=== PATIENT | female | born 1945 | race Caucasian/White ===

== ENCOUNTER 2022-12-09 09:25 | Outpatient (CLI) | payer MEDICARE, BC, SELFPAY | END 2022-12-09 09:26 | disposition home or self-care (01) | LOC: NFLDREF 12-10 11:44 | PROVIDERS: PCP Internal Medicine; Referring Provider Internal Medicine; Visit Provider Internal Medicine | DX: M85.80 Other specified disorders of bone density and structure, unspecified site (principal); E78.5 Hyperlipidemia, unspecified | CPT/HCPCS: 80061; 82306 ==

== ENCOUNTER 2023-10-16 10:00 | Outpatient (RCR) | payer MEDICARE, BC, SELFPAY ==
--- NOTE | 2023-09-23 17:11 | PT.OPE ---
PT [facility] [facility] PT [facility] Out[facility] Eval Start: 09/22/23 13:40 Freq: Status: Active Protocol: Document 09/23/23 17:10 AHMET (Rec: 09/23/23 17:11 AHMET [id number]) E-signed By Alexandro Leung PT Physical Therapy Outpatient Evaluation Insurance Information Recert Due Date 12/22/23 Insurance Name Medicare B Medical Diagnosis M67.912 - unspecified disorder of synovium and tendon, L shoulder M75.22 - bicipital tendonitis, L shoulder Treating Diagnosis M25.512 - L shoulder pain Referring Jojo Baig MD Subjective Subjective Pt presents with complaints of L shoulder pain. Pain has been ongoing for about 3-4 weeks now. No known injury. Pts was in the hospital a few months ago and during that time she was trying to complete a lot of housework. This is when she thinks her symptoms originally started. Presented to on with L cervical pain and L shoulder pain. Pts PCP thinks she has an issue with her RTC but ordered EKG to rule out cardiac involvement. Lifting the L arm and reaching behind her back has been most bothersome. Reaching into abduction is worse than flexion and range of motion is very limited compared to her R. Pt notes that her pain is on the top, front, and side of her L shoulder. Pt will be completing the rest of her therapy at [facility]. Pain Comments Date of Last Physician Visit 09/18/23 Current Work Status Retired Preferred Name Kareen Precautions Therapy Limitations/Systems Review Not Limited Objective Other/Pertinent Objective Cervical ROM Extension - 37 Flexion - 46 R/L Side Bend - 28/37 R/L Rotation - 62/67 R Shoulder ROM Flexion/Abduction/IR/ER - 170/ 170/T6/80 L Shoulder ROM Flexion/Abduction/IR/ER - 122/ 90/L2/60 R Shoulder Strength Flexion - 4/5 MMT Abduction - 4/5 MMT IR (neutral) - 5/5 MMT IR (90) - 5/5 MMT ER (neutral) - 4/5 MMT ER (90) - 4+/5 MMT Empty Can - 4/5 MMT L Shoulder Strength Flexion - unable to test due to pain Abduction - unable to test due to pain IR (neutral) - 4+/5 MMT IR (90) - unable to test due to pain ER (neutral) - 3/5 MMT * limited by pain ER (90) - unable to test due to pain Empty Can - unable to test due to pain Palpation: pt reports pain with palpation to L UT, levator, pec minor, pec major, LHBT, biceps mm belly, infraspinatus, teres group Crossover: positive L Karen-Efren: positive B Emmanuel: positive L Assessment Assessment/Impression Adelina is a very pleasant 77 year old female who presents to our clinic for evaluation and treatment of L shoulder pain. Pts pain began shortly after she had an extended bout of cleaning at home. Her pain is of the anterior, superior, and lateral L shoulder. Her pain is made worse with elevation and reaching behind her back, although nearly all motions create sharp pains. Today's examination was limited due to pts high level of pain and strength testing could not be completed. Based on pts subjective report and limited exam findings, pt appears to be dealing with a potential RTC tear although it is difficult to determine level of severity at this time . We were able to find several exercises that she could perform with [id number] pain. I've asked Kareen to complete these exercises daily until she has her next appointment with Amelia in [place] and she gives verbal understanding. The nature of the pts suspected condition was explained and all questions were answered to the pts satisfaction. Skilled PT services are medically necessary to address deficits and return patient to highest level of function. Recommend physical therapy sessions 1-2/ week for 4-6 weeks. Pt agrees with this plan. Printout of HEP was given for I completion and pt gives verbal understanding of each exercise . Primary Functional Limitations Lifting, reaching Plan of Care Rehabilitation Potential Good Physical Therapy Goals STG - To be completed in 2-3 weeks: 1. Pt will demonstrate improved shoulder flexion and abduction by 10+ degrees so that they may reach for cans of soup on top shelf in pantry . 2. Pt will report reduction in shoulder pain by factor of 2 so that they may sleep without waking due to pain while shifting position in the night . LTG - To be completed in 6 weeks: 1. Pt to be I with HEP so that they may I manage progression of symptoms. 2. Pt will report ability to lay on L shoulder in bed without increase in pain so that they may sleep in preferred position to achieve better night's sleep. 3. Pt will demo L shoulder ROM and strength equal to that of R so that they may return to completing gardening activities including lifting and carrying objects with reduction of risk of injury to L shoulder. Treatment Plan/Direct Interventions Electrical Stimulation,Heat, Ice/Cold/Vasopneumatic,Joint Mobilization,Manual Therapy, Self-Care/Home Management, Therapeutic Activities, Therapeutic Exercises, Ultrasound Frequency/Duration 1-2/week for 4-6 weeks Patient Will Be Discharged From Therapy Completion of LTG(s),Skills Plateau,Independent w/HEP, Independently Progressing Evaluation Billing Untimed Code Treatment Minutes 45 PT Eval No Charge No Complexity Low Certification Information Initial Certification Date 09/23/23 Ending Certification Date 12/22/23 Provider Signature Shows Agreement With POC & Medical Necessity Physician Signature & Date Requested Please Sign/Date Here Physician Comment/Change : Physician NPI Number #
== END 2024-02-13 23:59 | disposition home or self-care (01) ==
PROVIDERS: PCP Internal Medicine; Visit Provider Internal Medicine
DX: M67.912 Unspecified disorder of synovium and tendon, left shoulder (principal); M75.22 Bicipital tendinitis, left shoulder; M25.512 Pain in left shoulder; R29.898 Other symptoms and signs involving the musculoskeletal system; Z51.89 Encounter for other specified aftercare
CPT/HCPCS: 97110; 97140; 97161; 97535

== ENCOUNTER 2024-01-21 10:26 | Outpatient (CLI) | payer MEDICARE, BC, SELFPAY ==
--- OUTSIDE RECORDS SUMMARY | 2024-01-21 10:36 | XMS_ITS | Clinical Summary ---
Author Organization [facility] Address [address] [place] [id number] Care Team Providers Care Flatwork Ironer Name Role Phone Elsewhere, Pcp Primary Care Provider Unavailabl e Source Comments Patient records contain information from all sites at [facility]. For routine questions regarding patient records, call [phone] during business hours, M-F 8:00 AM - 5:00 PM Central Time. Record requests for emergency care only can be directed to [phone] at any time.[facility] Allergies No known active allergies Medications Medication Sig Dispensed Refills Start Date End Date Status simvastatin (ZOCOR) 20 mg tablet Take 20 mg by mouth at bedtime. Active multivitamin (MULTIPLE VITAMINS) tablet Take 1 tablet by mouth daily. Active aspirin 81 mg chewable tablet Chew 81 mg daily. Ac tive omeprazole (PriLOSEC) [address] capsule Take by mouth daily. 01/23/2021 Acti ve tretinoin (RETIN-A) 0.05 % cream Apply 1 application topically at bedtime. Apply to face and avoid around eyes. 45 g 3 03/07/2022 Active Additional Information Patient not taking.Reported on 03/10/2023 acetaminophen (TYLENOL) 325 mg tablet Take 325 mg by mouth every 4 (four) hours as needed for pain. Active Active Problems Problem Noted Date Diagnosed Date Malignant Neoplasm Of Lower Limb Basal Cell Carc inoma Right 03/18/2021 Immunizations Name Administration Dates Next Due HepA Adult 03/20/2016 Influenza high dose QV(65 ye ars or older) (PF) 01/15/2020 PCV13 02/23/2015 PPSV23 03/05/2016 RZV (SHINGRIX) 12/16/2018, 9,08/15/2018, 019 TyVi (inj) 03/20/2016 influenza high dose (65 year s or older) (PF) 03/08/2019,02/18/2018,03/05/2016, 015 Family History Medical History Relation Name Comments Transient ischemic attack Mother Tatianna Paris Relation Name Status Comments Mother Tatianna Paris Social History Tobacco Use Types Packs/Day Years Used Date Smoking Tobacco: Never Smokeless Tobacco: Never Alcohol Use Standard Drinks/Week Comments Never 0 (1 standard drink = 0.6 oz pur e alcohol) Overall Financial Resource Strain (CARDIA) Answe r Date Recorded How hard is it for you to pa y for the very basics like food, housing, medical care, and heating? Not hard at all 03/04/2023 PHQ-2 Answer Date Recorded PHQ-2 Score 0 03/16/2021 Exercise Vital Sign Answer Date Recorde d On average, how many days pe r week do you engage in moderate to strenuous exercise (like a brisk walk)? 4 days 03/04/2023 On average, how many minutes do you engage in exercise at this level? 30 min 03/04/2023 Hunger Vital Sign Answer Date Recorded Within the past 12 months, y ou worried that your food would run out before you got the money to buy more. Never true 03/04/20 Within the past 12 months, t he food you bought just didn't last and you didn't have money to get more. Never true 03/04/2023 PRAPARE - Transportation Answer Date Re corded In the past 12 months, has l ack of transportation kept you from medical appointments or from getting medications? No 02/16 In the past 12 months, has l ack of transportation kept you from meetings, work, or from getting things needed for daily living? No 03/04/2023 Nutrition Answer Date Recorded Nutrition: EVOO Fat Source Unknown 03/04 On average, how many serving s of fruits and vegetables do you eat per day (serving size is equal to 1 cup or approximately the size of a tennis ball)? 3-5 03/04/2023 Dental Answer Date Recorded Dental: Regular Dentist Yes 03/04/20 Employment Answer Date Recorded Employment status Retired 03/04/2023 Housing Stability Answer Date Recorded What is your living situation today? I have a [facility] place to live 03/04/2023 Sex and Gender Information Value Date Recorded Sex Assigned at Female 03/04/2023 6:09 PM CDT Gender Identity Female 03/04/2023 6:09 PM CDT Sexual Orientation Straight 03/04/2023 6: 09 PM CDT Last Filed Vital Signs Vital Sign Reading Time Taken Comments Blood Pressure 118/72 03/16/2021 10:02 AM CDT Pulse 71 03/16/2021 10:02 AM CDT Temperature 36.1 ??C (97 ??F) 03/16/2021 10:02 AM CDT Respiratory Rate - - Oxygen Saturation 97% 03/16/2021 10:02 AM CDT Inhaled Oxygen Concentration - - Weight 65.1 kg (143 lb 8.3 oz) 03/16/2021 10:02 AM CDT Height - - Body Mass Index - - Plan of Treatment Health Maintenance Due Date Last Done Comments Hepatitis C Screening 1945 Hepatitis A Vaccines (2 of 2 - Risk 2-dose series) 09/17/2016 03/20/2016 Depression Screening (Annual PHQ-2) 05/19/2023 Fall Risk Screen (Annual) 05/19/2023 COVID-19 Vaccine (2022-2 4 season) 2024 02/21/2023, 02/28/2022, 08/23/2021, Additional history exists Influenza Vaccine (#1) 2024 , 02/07/2022, 01/15/2020, Additional history exists DTaP,Tdap,and Td Vaccines (2 - Td or Tdap) 02/08/2032 02/07/2022 Pneumococcal vaccine (65+ years) Completed 03/05/20 16, 02/23/2015 Zoster Vaccines Completed 12/16/2018, 09/2018, 08/15/2018, Additional history exists Care Teams Flatwork Ironer Relationship Specialty Start Date End Date Elsewhere, Pcp PCP - General Family Medicine 03/16/21
--- OUTSIDE RECORDS SUMMARY | 2024-01-21 10:36 | XMS_ITS ---
Author Organization [facility] Address [address] [place] [address] Care Team Providers Care Red Hat Engineer Name Role Phone Unavailable Unavailable Unavailable Surgery Details Not on file Complications Check Surgery Details section. Procedure Estimated Blood Loss Check Surgery Details section. Procedure Findings Check Surgery Details section. Procedure Specimens Taken Check Surgery Details section.
--- OUTSIDE RECORDS SUMMARY | 2024-01-21 10:36 | XMS_ITS | Referral Summary ---
Author Organization [facility] Address [address] [place] [address] Care Team Providers Care Software Lead Name Role Phone Elsewhere, Pcp Primary Care Provider Unavailabl e Source Comments Patient records contain information from all sites at [facility]. For routine questions regarding patient records, call [phone] during business hours, M-F 8:00 AM - 5:00 PM Central Time. Record requests for emergency care only can be directed to [phone] at any time.[facility] Allergies No known active allergies Medications Medication [...] year s or older) (PF) 03/08/2019,02/18/2018,03/05/2016, 015 Social History Tobacco Use Types Packs/Day Years [...] your living situation today? I have a [facility] place to live 03/04/2023 Sex and Gender [...] Mass Index - - Plan of Treatment Not on file Care Teams Software Lead Relationship Specialty Start Date End Date Elsewhere, Pcp PCP - General Family Medicine 03/16/21
== END 2024-01-21 10:27 | disposition home or self-care (01) ==
PROVIDERS: PCP Internal Medicine; Visit Provider Registered Nurse
DX: R53.81 Other malaise (principal); R53.82 Chronic fatigue, unspecified; Z13.0 Encounter for screening for diseases of the blood and blood-forming organs and certain disorders involving the immune mechanism
CPT/HCPCS: 80053; 82728; 84443; 86140

== ENCOUNTER 2024-02-25 08:32 | Outpatient (CLI) | payer MEDICARE, BC, SELFPAY ==
--- OUTSIDE RECORDS SUMMARY | 2024-02-27 11:06 | XMS_ITS | Encounter Summary ---
Author Organization [facility] Address [address] [place] [address] Care Team Providers Care Truck Driver'S Offsider Name Role Phone Elsewhere, Pcp Primary Care Provider Unavailabl e Reason for Visit * Appointment Request (Routine) - Closed Specialty Diagnoses / Procedures Referred By Francisca grimaldo Referred To Contact Dermatology Diagnoses Screening Examination Skin Cancer Personal History Of Other Malignant Neoplasm Of Skin Referral ID Status Reason Start Date Expiration Date Visits Re quested Visits Authorized [id number] Closed 02/17/2024 02/16/2025 1 1 Encounter Details Date Type Department Care Team (Latest Contact Info) Description 02/20/2024 11:20 AM CDT Office Visit Department of Dermatology in [place], [place] [address] [place] [phone] Svetlana Foster M.D. [address] [place] [phone] Dermatoheliosis (Primary Dx); Nevi Multiple; Keratosis Seborrheic; Keratosis Actinic Discharge Disposition: Home or Self Care Social History Tobacco Use Types Packs/Day Years [...] your living situation today? I have a [facility] place to live 03/04/2023 Sex and Gender Information Value Date Recorded Sex Assigned at Female 03/04/2023 6:09 PM CDT Gender Identity Female 03/04/2023 6:09 PM CDT Sexual Orientation Straight 03/04/2023 6: 09 PM CDT documented as of this encounter Progress Notes * Svetlana Foster M.D. - 02/20/2024 11:20 AM CDT Correspondence to: Svetlana Foster M.D. Referring provider: No ref. provider found This patient was seen and staffed with Dr. Pérez. SUBJECTIVE CHIEF COMPLAINT / REASON FOR VISIT History of NMSC. HISTORY OF PRESENT ILLNESS Ms. Adelina Arevalo is a very pleasant 78 y.o. female who presents today for a skin cancer screening examination. Ms. Adelina Arevalo has a history of nonmelanoma skin cancer. She was last seen by [facility] in February 2023 at which time she had actinic keratoses treated with cryotherapy and had a biopsy on the right preauricular area that showed a nodular and infiltrative basal cell carcinoma that was treated at an outside facility. Today, she notes a spot on her nose bled after the shower recently. Denies any other specific concerns. No Known Allergies MEDICAL HISTORY History nonmelanoma skin cancer SOCIAL HISTORY Grew up in [place]. Went to [facility] and met her there. Her recently had heart surgery and is doing better. OBJECTIVE PHYSICAL EXAMINATION General: Awake, alert, in no acute distress, and with appropriate affect. Eyes: No scleral injection or icterus. No eyelid abnormalities. Skin: I have examined the scalp, face, neck, chest, abdomen, back, bilateral upper extremities, andbilateral lower extremities, and buttocks -Coon skin type 2 -Mild dermatoheliosis in sun exposed areas. -Primarily over the trunk and also on the extremities, there are scattered small brown round macules and papules; many of these are examined dermoscopically and reveal regular symmetric network and appear consistent with banal-appearing nevi. -Scattered waxy stuck brown-patricio papules and plaques consistent with seborrheic keratoses. Larger seborrheic keratoses on the right synagogue. -Over the trunk, there are a few bright red dome shaped papules consistent with lacy angiomas. -involving left nasal sidewall, Gritty pink/red papules with adherent scale consistent with actinickeratosis -Ill-defined light brown macule/patch on sun-exposed areas consistent with solar lentigines -Soft, pedunculated flesh colored papules c/w acrochordons. ASSESSMENT / PLAN #1 Dermatoheliosis #2 History of nonmelanoma skin cancer Past history of skin cancer places this patient at increased risk of future NMSC. Sun protection and sun avoidance were reviewed with the patient. Education was provided regarding skin self-examination, the warning signs and symptoms of skin cancer, and the proper use of sunscreens. Appropriate SPFsunscreen was recommended. I would recommend a full skin cancer screening examination with an appropriately trained clinician every year or sooner if any new concerns. #3 Banal-appearing nevi None of the patient's nevi reach the clinical threshold for biopsy. I recommend continued sun protection, self-skin examinations, and observation. Should any of the patient's nevi change in size, color, texture, or shape or develop symptoms such as itching or bleeding, I recommend a return visit for reassessment. #4 Actinic keratoses times 1, left nasal sidewall Given the precancerous nature of this lesion(s), treatment is medically indicated. After discussionof the risks, benefits and alternatives to treatment with cryotherapy, informed consent was obtained. We treated a total of 1 lesion(s) with two 20-second freeze-thaw cycles of liquid nitrogen cryotherapy. The patient tolerated the procedure well. Aftercare instructions were provided in written andverbal form to the patient. Should any of these lesions recur, the patient should return for biopsyor further evaluation. Discussed the risks, benefits, alternatives, and the necessity of other members of the healthcare team participating in the procedure. All questions answered and consent given. All questions answered. PATIENT EDUCATION Ready to learn. No apparent learning barriers were identified. Learning preferences include listening. Explained diagnosis and treatment plan; patient/guardian of patient expressed understanding of the content. Svetlana Foster M.D. Dermatology Associated attestation - Fred Pérez M.D., M.B.A. - 02/20/2024 1:38 PM CDT I saw and evaluated the patient, participating in the saldana portions of the service. I reviewed the resident/fellow???s note. I agree with the resident/fellow???s findings and plan. documented in this encounter Plan of Treatment Not on file documented as of this encounter Visit Diagnoses Diagnosis Dermatoheliosis- Primary Nevi Multiple Keratosis Seborrheic Keratosis Actinic documented in this encounter Care Teams Truck Driver'S Offsider Relationship Specialty Start Date End Date Elsewhere, Pcp PCP - General Family Medicine 03/16/21 documented as of this encounter
--- OUTSIDE RECORDS SUMMARY | 2024-02-27 11:06 | XMS_ITS | Clinical Summary ---
Author Organization [facility] Address [address] [place] [address] Care Team Providers Care Head Porter Baggage Name Role Phone Elsewhere, Pcp Primary Care Provider Unavailabl e Source Comments Patient records contain information from all sites at [facility]. For routine questions regarding patient records, call [phone] during business hours, M-F 8:00 AM - 5:00 PM Central Time. Record requests for emergency care only can be directed to [phone] at any time.[facility] Allergies No known active allergies Medications Medication [...] Limb Basal Cell Carc inoma Right 03/18/2021 Encounters Date Type Department Care Team Description 02/20/2024 11:20 AM CDT Office Visit Department of Dermatology in [place], [place] [address] [place] [phone] Cristian, Svetlana B, M.D. Dermatoheliosis (Primary Dx); Nevi Multiple; Keratosis Seborrheic; Keratosis Actinic Discharge Disposition: Home or Self Care from Last 3 Months Immunizations Name Administration Dates Next Due HepA Adult 03/20/2016 Influenza high dose QV(65 ye ars or older) (PF) 01/15/2020 PCV13 02/23/2015 PPSV23 03/05/2016 RZV (SHINGRIX) 12/16/2018, 9,08/15/2018, 019 TyVi (inj) 03/20/2016 influenza trivalent high dos e (HD)(PF) 03/08/2019,02/18/2018,03/05/2016, 015 Family History Medical History Relation [...] money to buy more. Never true 03/04/20 23 Within the past 12 months, t he [...] your living situation today? I have a [facility] place to live 03/04/2023 Sex and Gender [...] Last Done Comments Hepatitis C Screening 1945 Depression Screening (Annual PHQ-2) 05/19/2023 Fall Risk Screen (Annual) 05/19/2023 COVID-19 Vaccine (2023-2 5 season) 2024 02/21/2023, 02/28/2022, 08/23/2021, Additional history exists Influenza Vaccine (#1) 2024 , 02/07/2022, 01/15/2020, Additional history exists DTaP,Tdap,and Td Vaccines (2 - Td or Tdap) 02/08/2032 02/07/2022 Pneumococcal vaccine (65+ years) Completed 03/05/20 16, 02/23/2015 Zoster Vaccines Completed 12/16/2018, 09/2018, 08/15/2018, Additional history exists RSV vaccine - (32-3 6 weeks) or 60+ years Completed 01/29/2023 Care Teams Head Porter Baggage Relationship Specialty Start Date End Date Elsewhere, Pcp PCP - General Family Medicine 03/16/21
--- OUTSIDE RECORDS SUMMARY | 2024-02-27 11:06 | XMS_ITS ---
Author Organization [facility] Address [address] [place] [address] Care Team Providers Care Boss Dyer Name Role Phone Unavailable Unavailable Unavailable Surgery Details Not on file Complications Check Surgery Details section. Procedure Estimated Blood Loss Check Surgery Details section. Procedure Findings Check Surgery Details section. Procedure Specimens Taken Check Surgery Details section.
--- OUTSIDE RECORDS SUMMARY | 2024-02-27 11:06 | XMS_ITS | Referral Summary ---
Author Organization [facility] Address [address] [place] [phone] Care Team Providers Care Butcherette Name Role Phone Elsewhere, Pcp Primary Care Provider Unavailabl e Source Comments Patient records contain information from all sites at [facility]. For routine questions regarding patient records, call [phone] during business hours, M-F 8:00 AM - 5:00 PM Central Time. Record requests for emergency care only can be directed to [phone] at any time.[facility] Encounters Date Type Department Care Team Description 02/20/2024 11:20 AM CDT Office Visit Department of Dermatology in [place], [place] [address] [place] [phone] Svetlana Foster M.D. Dermatoheliosis (Primary Dx); Nevi Multiple; Keratosis Seborrheic; Keratosis Actinic Discharge Disposition: Home or Self Care from Last 3 Months Allergies No known active allergies Medications Medication [...] trivalent high dos e (HD)(PF) 03/08/2019,02/18/2018,03/05/2016, 015 Social History Tobacco Use Types [...] your living situation today? I have a [facility] place to live 03/04/2023 Sex [...] of Treatment Not on file Care Teams Butcherette Relationship Specialty Start Date End Date Elsewhere, Pcp PCP - General Family Medicine 03/16/21
== END 2024-02-25 08:33 | disposition home or self-care (01) ==
LOC: NFLDREF 02-27 11:02
PROVIDERS: PCP Internal Medicine; Referring Provider Internal Medicine; Visit Provider Internal Medicine
DX: M85.80 Other specified disorders of bone density and structure, unspecified site (principal); E78.5 Hyperlipidemia, unspecified
CPT/HCPCS: 80061; 82306

== ENCOUNTER 2024-03-01 12:30 | Outpatient (CLI) | payer MEDICARE, BC, SELFPAY ==
--- NOTE | 2024-03-01 13:00 | CRLHL7_ITS ---
For Patients: As a result of the Century Cures Act, medical imaging exams and procedure reports are released immediately into your electronic medical record. You may view this report before your referring provider. If you have questions, please contact your health care provider. INDICATION: Right lower quadrant pain TECHNIQUE: CT abdomen and pelvis with 67 mL Isovue 370 COMPARISON: None. FINDINGS: Lower chest: Unremarkable. Liver: Normal in size and attenuation. No suspicious masses. Coarse calcification in the liver. Gallbladder and bile ducts: No stones or inflammation. No biliary dilatation. Pancreas: Unremarkable. No mass or inflammation. Spleen: Normal in size. No masses. Adrenal glands: Normal in size. No nodules. Kidneys: Normal in size. No suspicious masses, stones, or hydronephrosis. GI tract: Unremarkable. Normal in caliber. No sign of mass or inflammation. No abundant stool in the colon. Diverticulosis. Normal appendix. Vasculature: Abdominal aorta is normal in caliber. Lymph nodes: No lymphadenopathy. Peritoneum/Abdominal Wall: Unremarkable. No sign of mass or infiltration. No free air or significant free fluid. Pelvis: Unremarkable. No pelvic masses. Bones: Unremarkable for age. IMPRESSION: 1. No acute findings in the abdomen or pelvis. Normal appendix. Abundant stool in the colon diverticulosis. Please note that all CT scans at this facility use dose modulation, iterative reconstruction, and/or weight-based dosing when appropriate to reduce radiation dose to as low as reasonably achievable. Dictated by Socorro Dill MD @ 03/03/2024 7:23:25 AM (Electronically Signed)
--- OUTSIDE RECORDS SUMMARY | 2024-03-01 13:03 | XMS_ITS | Encounter Summary ---
Author Organization [facility] Address [address] [place] [address] Care Team Providers Care Therapeutic Case Manager Name Role Phone Elsewhere, Pcp Primary Care Provider Unavailabl e Reason for Visit * Appointment Request (Routine) - Closed Specialty Diagnoses / Procedures Referred By Francisca grimaldo Referred To Contact Dermatology Diagnoses Screening Examination Skin Cancer Personal History Of Other Malignant Neoplasm Of Skin Referral ID Status Reason Start Date Expiration Date Visits Re quested Visits Authorized [id number] Closed 02/17/2024 02/16/2025 1 1 Encounter Details Date Type Department Care Team (Latest Contact Info) Description 02/20/2024 11:20 AM CDT Office Visit Department of Dermatology in [place], [place] [address] [place] [phone] Svetlana Foster M.D. [address] [place] [phone] Dermatoheliosis (Primary Dx); Nevi Multiple; Keratosis Seborrheic; [...] your living situation today? 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 She was last seen by [facility] in February 2023 at which time [...] skin cancer SOCIAL HISTORY Grew up in [place]. Went to [place] and met her there. Her recently had [...] keratoses. Larger seborrheic keratoses on the right jewish. -Over the trunk, there are a few [...] of the content. Svetlana Foster M.D. Dermatology Cosigned by Fred Pérez M.D., M.B.A. at 02/20/2024 1:38 PM CDT Associated attestation - Fred Pérez M.D., M.B.A. [...] [facility] documented in this encounter Care Teams Therapeutic Case Manager Relationship Specialty Start Date End Date Elsewhere, Pcp PCP - General Family Medicine 03/16/21 documented as of this encounter
--- OUTSIDE RECORDS SUMMARY | 2024-03-01 13:03 | XMS_ITS | Clinical Summary ---
Author Organization [facility] Address [address] [place] [address] Care Team Providers Care Cyber Defense Incident Responder Name Role Phone Elsewhere, Pcp Primary Care Provider Unavailabl e Source Comments Patient records contain information from all sites at [facility]. For routine questions regarding patient records, call [phone] during business hours, M-F 8:00 AM - 5:00 PM Central Time. Record requests for emergency care only can be directed to [phone] at any time.[facility] Allergies No known active allergies Medications simvastatin (ZOCOR) 20 mg tablet Take 20 mg by mouth at bedtime. Active multivitamin (MULTIPLE VITAMINS) tablet Take 1 tablet by mouth daily. Active aspirin 81 mg chewable tablet Chew 81 mg daily. Active omeprazole (PriLOSEC) [address] capsule Take by mouth daily. 1 Active tretinoin (RETIN-A) 0.05 % cream Apply 1 application topically at bedtime. Apply to face and avoid around eyes. 45 g 3 2 Active Additional Information Patient not taking.Reported on 03/10/2023 acetaminophen (TYLENOL) 325 mg tablet Take 325 mg by mouth every 4 (four) hours as needed for pain. 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 Dermatoheliosis (Primary Dx); [...] your living situation today? 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
--- OUTSIDE RECORDS SUMMARY | 2024-03-01 13:03 | XMS_ITS ---
Author Organization [facility] Address [address] [place] [address] Care Team Providers Care Director Of Search Engine Marketing Name Role Phone Unavailable Unavailable Unavailable Surgery Details Not on file Complications Check Surgery Details section. Procedure Estimated Blood Loss Check Surgery Details section. Procedure Findings Check Surgery Details section. Procedure Specimens Taken Check Surgery Details section.
--- OUTSIDE RECORDS SUMMARY | 2024-03-01 13:03 | XMS_ITS | Referral Summary ---
Author Organization [facility] Address [address] [place] [address] Care Team Providers Care Side Puller Name Role Phone Elsewhere, Pcp Primary Care Provider Unavailabl e Source Comments Patient records contain information from all sites at [facility]. For routine questions regarding patient records, call [phone] during business hours, M-F 8:00 AM - 5:00 PM Central Time. Record requests for emergency care only can be directed to [phone] at any time.[facility] Encounters Date Type Department Care Team Description 02/20/2024 11:20 AM CDT Office Visit Department of Dermatology in [place], [place] [address] [place] [phone] Svetlana Foster M.D. Dermatoheliosis (Primary Dx); Nevi Multiple; Keratosis Seborrheic; Keratosis Actinic Discharge Disposition: Home or Self Care from Last 3 Months Allergies No known active allergies Medications simvastatin [...] your living situation today? 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
[2024-03-01 13:09] LABS: Creatinine* 0.7 mg/dL (0.5-1.5); Estimated Glomerular Filt Rate 89 ml/min
== END 2024-03-01 12:31 | disposition home or self-care (01) ==
PROVIDERS: PCP Internal Medicine; Visit Provider Internal Medicine
DX: R10.31 Right lower quadrant pain (principal)
CPT/HCPCS: 36415; 74177; 82565; Q9967

== ENCOUNTER 2024-08-23 11:50 | Outpatient (CLI) | payer MEDICARE, BC, SELFPAY | END 2024-08-23 11:51 | disposition home or self-care (01) | PROVIDERS: PCP Internal Medicine; Visit Provider Family Medicine | DX: R10.9 Unspecified abdominal pain (principal); R11.2 Nausea with vomiting, unspecified; R35.0 Frequency of micturition | CPT/HCPCS: 80053; 86140; 87086 ==

== ENCOUNTER 2024-08-30 11:05 | Outpatient (CLI) | payer MEDICARE, BC, SELFPAY | END 2024-08-30 11:06 | disposition home or self-care (01) | PROVIDERS: PCP Internal Medicine; Visit Provider Internal Medicine | DX: R11.0 Nausea (principal) | CPT/HCPCS: 80053; 82150; 83690 ==

== ENCOUNTER 2024-10-07 11:01 | Outpatient (CLI) | payer MEDICARE, BC, SELFPAY ==
--- NOTE | 2024-10-07 11:00 | CRLHL7_ITS ---
For Patients: As a result of the Century Cures Act, medical imaging exams and procedure reports are released immediately into your electronic medical record. You may view this report before your referring provider. If you have questions, please contact your health care provider. Indication: NAUSEA. RT SIDED PAIN Technique: Noncontrast CT abdomen and pelvis Please note that all CT scans at this facility use dose modulation, iterative reconstruction, and/or weight-based dosing when appropriate to reduce radiation dose to as low as reasonably achievable. Comparison: 03/01/2024 Findings: Mild scarring in both lung bases. Normal noncontrast liver. Gallbladder unremarkable. Normal spleen. Adrenal glands normal. Normal pancreas. Kidney is normal. No renal, ureteral or bladder stone. Atherosclerotic changes. Normal uterus. No adnexal mass. Sigmoid diverticulosis. No diverticulitis. Normal appendix. Degenerative disc disease lumbar spine. Impression: No renal, ureteral or bladder stone. Sigmoid diverticulosis. Please note that all CT scans at this facility use dose modulation, iterative reconstruction, and/or weight-based dosing when appropriate to reduce radiation dose to as low as reasonably achievable. Dictated by Miguel Deutsch MD @ 10/07/2024 12:48:02 PM (Electronically Signed)
== END 2024-10-07 11:02 | disposition home or self-care (01) ==
LOC: CT 11:02
PROVIDERS: PCP Internal Medicine; Visit Provider Internal Medicine
DX: R11.0 Nausea (principal); K57.30 Diverticulosis of large intestine without perforation or abscess without bleeding; R10.9 Unspecified abdominal pain
CPT/HCPCS: 74176